=== PATIENT | female | born 1990 | race African-American/Black ===

== ENCOUNTER 2019-09-07 16:40 | Emergency (ER) | payer SELFPAY ==
[~2019-09-07] VITALS: Ht 167.6 cm; Wt 77.0 kg
[~2019-09-07 16:40] MED LIST: BACTRIM DS1 TAB PO; CIPRO500 MG OR; CIPROFLOXACN500 MG PO; FOLIC ACID1 MG PO; IBUPROFEN800 MG OR; LORTAB 7.57.5 MG PO; MACRODANTIN100 MG OR; MOTRIN800 MG PO; NO; PRENATA3 OR; PREVACID15 M2 OR; ZOFRAN ODT4 MG PO
[2019-09-07] MEDS ORDERED: AMOXICILLIN500 M2 PO (20:37)
[2019-09-07 20:40] VITALS: BP 119/79
[2019-09-28] MEDS ORDERED: MECLIZINE25 MG PO (11:24)
[2019-09-28] MEDS ORDERED: ONDANSETRON4 MG PO (11:24)
== END 2019-09-07 20:40 | disposition home or self-care (01) | DRG 153 ==
LOC: ED 16:40
DX: J06.9 Acute upper respiratory infection, unspecified (principal); H66.93 Otitis media, unspecified, bilateral

== ENCOUNTER 2019-09-28 | Emergency (ER) | payer MEDICAID ==
[~2019-09-28] MED LIST changes: +AMOXICILLIN500 M2 PO
[2019-09-28 09:47] LABS: HEMOGLOBIN 12.5 g/dl (12.0-16.0); IMMATURE GRANULOCYTES 0.4 % (0.0-5.0); MEAN CORPUSCULAR HGB 24.7 pG CALC (26.0-32.0); MEAN CORPUSCULAR HGB CONC 30.7 g/L CALC (32.0-36.0); NEUT# 2.12 thou/uL (2.00-7.15); RED BLOOD COUNT 5.07 mill/uL (4.20-5.60); RED CELL DISTRI WIDTH 14.9 % (11.5-15.5)
[2019-09-28 09:50] LABS: HEMATOCRIT 40.7 % (37.0-47.0); MEAN CELL VOLUME 80.3 fL CALC (80.0-100.0)
[2019-09-28 09:52] LABS: URINE BILIRUBIN - DIPSTICK NEGATIVE (NEGATIVE); URINE BLOOD DIPSTICK NEGATIVE (NEGATIVE); URINE COLOR YELLOW; URINE GLUCOSE - DIPSTICK NEGATIVE (NEGATIVE); URINE KETONE NEGATIVE (NEGATIVE); URINE LEUK ESTERASE NEGATIVE (NEGATIVE); URINE PROTEIN - DIPSTICK NEGATIVE (NEG-TRACE)
[2019-09-28 09:53] LABS: URINE NITRITE - DIPSTICK POSITIVE (Negative)
[2019-09-28 09:54] LABS: URINE BACTERIA MANY hpf; URINE EPITHELIAL CELLS MODERATE EPI/hpf (0-FEW)
[2019-09-28 10:16] LABS: ALBUMIN 5.1 g/dL (3.2-5.0); ALKALINE PHOSPHATASE 74 u/l (38-126); ANION GAP 16 (6-22 (CALC)); BUN 6 mg/dL (7-17); BUN/CREATININE RATIO 9 (12-20 (CALC)); CARBON DIOXIDE 26 mmol/l (22-30); CHLORIDE 103 mmol/l (95-108); CREATININE 0.7 mg/dL (0.5-1.0); GFR > 60 ML/MIN (>=60 (CALC)); GFR FOR AFR.AMER. > 60 ML/MIN (>=60 (CALC)); POTASSIUM 3.9 mmol/l (3.5-5.1); SGOT/AST 17 u/l (14-36); SODIUM 141 mmol/l (137-146)
[2019-09-28 10:20] LABS: BILIRUBIN, TOTAL 0.9 mg/dL (0.0-1.4); TOTAL PROTEIN 9.8 g/dL (6.3-8.2)
[2019-09-28] MEDS ORDERED: ONDANSETRON4 MG PO ×2 (11:24)
[2019-09-28] MEDS ORDERED: MECLIZINE25 MG PO ×2 (11:24)
== END 2019-09-28 11:50 | disposition home or self-care (01) ==
PROVIDERS: Family Medicine
DX: R42 Dizziness and giddiness (principal); H92.01 Otalgia, right ear; R82.71 Bacteriuria

== ENCOUNTER 2019-11-10 | Emergency (ER) | payer MEDICAID ==
[~2019-11-10] MED LIST changes: +MECLIZINE25 MG PO; +ONDANSETRON4 MG PO
== END 2019-11-10 16:20 | disposition home or self-care (01) | DRG 392 ==
DX: K52.9 Noninfective gastroenteritis and colitis, unspecified (principal)

== ENCOUNTER 2020-06-21 22:23 | Emergency (ER) | payer SELFPAY ==
[~2020-06-21] VITALS: Ht 167.6 cm; Wt 68.0 kg
[2020-06-21 23:10] LABS: HEMATOCRIT 35.7 % (37.0-47.0); IMMATURE GRANULOCYTES 0.2 % (0.0-5.0); MEAN CELL VOLUME 81.7 fL CALC (80.0-100.0); MEAN CORPUSCULAR HGB 25.2 pG CALC (26.0-32.0); MEAN CORPUSCULAR HGB CONC 30.8 g/dL CAL (32.0-36.0); NEUT# 2.47 thou/uL (2.00-7.15); RED BLOOD COUNT 4.37 mill/uL (4.20-5.60); RED CELL DISTRI WIDTH 13.7 % (11.5-15.5)
[2020-06-21 23:28] LABS: ALBUMIN 4.8 g/dL (3.2-5.0); ALKALINE PHOSPHATASE 55 u/l (38-126); AMYLASE 86 u/l (30-110); ANION GAP 14 (6-22 (CALC)); BILIRUBIN, TOTAL 0.6 mg/dL (0.0-1.4); BUN 13 mg/dL (7-17); BUN/CREATININE RATIO 18 (12-20 (CALC)); CARBON DIOXIDE 26 mmol/l (22-30); CHLORIDE 103 mmol/l (95-108); CREATININE 0.7 mg/dL (0.5-1.0); GFR > 60 ML/MIN (>=60 (CALC)); GFR FOR AFR.AMER. > 60 ML/MIN (>=60 (CALC)); LIPASE 178 u/l (23-300); POTASSIUM 3.9 mmol/l (3.5-5.1); SGOT/AST 21 u/l (14-36); SODIUM 138 mmol/l (137-146); TOTAL PROTEIN 9.1 g/dL (6.3-8.2)
[2020-06-22 00:40] LABS: URINE BILIRUBIN - DIPSTICK NEGATIVE (NEGATIVE); URINE BLOOD DIPSTICK MODERATE (NEGATIVE); URINE COLOR YELLOW; URINE GLUCOSE - DIPSTICK NEGATIVE (NEGATIVE); URINE KETONE NEGATIVE (NEGATIVE); URINE LEUK ESTERASE TRACE (NEGATIVE); URINE PROTEIN - DIPSTICK NEGATIVE (NEG-TRACE); URINE SPECIFIC GRAVITY 1.015; URINE UROBILINOGEN - DIPSTICK 0.2 E.U./dL (0.2)
[2020-06-22 00:50] LABS: URINE BACTERIA MANY hpf; URINE NITRITE - DIPSTICK POSITIVE (Negative); URINE SQUAMOUS EPITHELIAL CELL FEW EPI/hpf (0-FEW)
[2020-06-22] MEDS ORDERED: BACTRIM DS1 TAB PO (00:57)
[2020-06-22 01:30] VITALS: BP 117/75
== END 2020-06-22 01:30 | disposition home or self-care (01) | DRG 392 ==
LOC: ED 22:23
PROVIDERS: Family Medicine
DX: K52.9 Noninfective gastroenteritis and colitis, unspecified (principal); N39.0 Urinary tract infection, site not specified; B96.20 Unspecified Escherichia coli [E. coli] as the cause of diseases classified elsewhere

== ENCOUNTER 2021-02-02 18:50 | Emergency (ER) | payer OTHER ==
[~2021-02-02] VITALS: Ht 167.6 cm; Wt 65.9 kg
[2021-02-02 20:30] LABS: URINE BILIRUBIN - DIPSTICK NEGATIVE (NEGATIVE); URINE BLOOD DIPSTICK NEGATIVE (NEGATIVE); URINE COLOR YELLOW; URINE GLUCOSE - DIPSTICK NEGATIVE (NEGATIVE); URINE KETONE TRACE mg/dL (NEGATIVE); URINE LEUK ESTERASE TRACE (NEGATIVE); URINE PROTEIN - DIPSTICK NEGATIVE (NEG-TRACE); URINE SPECIFIC GRAVITY 1.025; URINE UROBILINOGEN - DIPSTICK 0.2 E.U./dL (0.2)
[2021-02-02 20:39] LABS: URINE NITRITE - DIPSTICK POSITIVE (Negative)
[2021-02-02 20:59] LABS: URINE BACTERIA MANY hpf; URINE RBC 0-2 RBC/hpf (0-5); URINE SQUAMOUS EPITHELIAL CELL FEW EPI/hpf (0-FEW)
[2021-02-02] MEDS ORDERED: BACTRIM DS1 TAB PO (21:21)
[2021-02-02 21:40] VITALS: BP 130/78
== END 2021-02-02 21:44 | disposition home or self-care (01) ==
LOC: ED 18:50
PROVIDERS: Family Medicine
DX: N39.0 Urinary tract infection, site not specified (principal); B96.20 Unspecified Escherichia coli [E. coli] as the cause of diseases classified elsewhere

== ENCOUNTER 2024-11-10 17:52 | Emergency (ER) | payer OTHER ==
[~2024-11-10] VITALS: Ht 167.6 cm; Wt 81.6 kg
[2024-11-10 18:53] LABS: URINE BILIRUBIN - DIPSTICK Negative (NEGATIVE); URINE BLOOD DIPSTICK Small (NEGATIVE); URINE GLUCOSE - DIPSTICK Negative (NEGATIVE); URINE KETONE Negative (NEGATIVE); URINE LEUK ESTERASE Negative (NEGATIVE); URINE NITRITE - DIPSTICK Negative (Negative); URINE PROTEIN - DIPSTICK Negative (NEG-TRACE); URINE SPECIFIC GRAVITY <=1.005; URINE UROBILINOGEN - DIPSTICK 0.2 E.U./dL (0.2)
[2024-11-10 18:56] LABS: URINE COLOR Light yellow
[2024-11-10 19:05] LABS: URINE RBC 0-2 RBC/hpf (0-5); URINE SQUAMOUS EPITHELIAL CELL FEW EPI/hpf (0-FEW); URINE WBC 0-2 WBC/hpf (0-5)
[2024-11-10] MEDS ORDERED: LIDOcaine HCl 1% (Local Anesth.) 20 ML VIAL IM STA (19:55)
[2024-11-10] MEDS ORDERED: cefTRIAXone SODIUM 1 GM/VIAL SDV IM ONE (19:55)
[2024-11-10] MEDS ORDERED: AZITHROMYCIN 250 MG/TAB PO ONE (20:00)
== END 2024-11-10 20:36 | disposition home or self-care (01) | DRG 696 ==
LOC: ED 17:52
PROVIDERS: Nurse Practitioner
DX: R30.0 Dysuria (principal); Z87.440 Personal history of urinary (tract) infections
CPT/HCPCS: J0696